=== PATIENT | female | born 1965 | race Two or more races ===

== ENCOUNTER 2024-10-12 19:40 | Emergency (ER) | payer MEDICAID, OTHER ==
[~2024-10-12] VITALS: Ht 165.1 cm; Wt 72.7 kg
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
[2024-10-12 20:56] VITALS: PULSE 67; RESP 16; TEMP 98.1; O2SAT 96
[2024-10-12] MEDS: HYDROcodone-ACET 5/325MG TAB PO ONE (20:56)
[2024-10-12] MEDS ORDERED: IBUP1TAB5 PO (22:04)
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
[2024-10-13 02:13] VITALS: BP 121/67; PULSE 65; RESP 18; O2SAT 98
== END 2024-10-13 02:11 | disposition home or self-care (01) ==
LOC: ER 19:40 → EDBD 19:40 → ER 10-13 02:11
DX: S16.1XXA Strain of muscle, fascia and tendon at neck level, initial encounter (principal); S09.90XA Unspecified injury of head, initial encounter; E03.9 Hypothyroidism, unspecified; Z90.49 Acquired absence of other specified parts of digestive tract; V89.2XXA Person injured in unspecified motor-vehicle accident, traffic, initial encounter; Y93.89 Activity, other specified; Y92.89 Other specified places as the place of occurrence of the external cause; Y99.8 Other external cause status
CPT/HCPCS: 70450; 72125